=== PATIENT | male | born 1945 | race Caucasian/White ===

== ENCOUNTER 2023-08-09 09:37 | Oncology outpatient (recurring) (ONCR) | payer OTHER, SELFPAY | END 2023-08-22 23:59 | disposition home or self-care (01) | PROVIDERS: Visit Provider Internal Medicine Medical Oncology | DX: C34.12 Malignant neoplasm of upper lobe, left bronchus or lung (principal); Z79.899 Other long term (current) drug therapy; Z53.9 Procedure and treatment not carried out, unspecified reason | CPT/HCPCS: 99205 ==

== ENCOUNTER 2023-09-04 13:56 | Outpatient (CLI) | payer OTHER, SELFPAY | END 2023-09-04 13:57 | disposition home or self-care (01) | LOC: RT 13:56 | PROVIDERS: PCP Internal Medicine; Visit Provider Internal Medicine Medical Oncology | DX: C34.12 Malignant neoplasm of upper lobe, left bronchus or lung (principal); Z72.0 Tobacco use | CPT/HCPCS: 94010; 94726; 94729 ==

== ENCOUNTER 2023-09-12 12:00 | Oncology outpatient (recurring) (ONCR) | payer OTHER, SELFPAY ==
[2023-09-12 12:19] LABS: Basophils % 0.2 %; Eosinophils # 0.3 10^3/uL (0.0-0.8); Eosinophils % 3.1 %; Hematocrit 34.2 % (37-53); Lymphocytes # 1.1 10^3/uL (0.8-4.8); Lymphocytes % 9.9 %; Mean Corpuscular HGB Conc 31.9 g/dL (30-55); Mean Corpuscular Hemoglobin 26.1 pg (27-33); Mean Platelet Volume 8.7 fL (7.4-10.4); Monocytes # 0.8 10^3/uL (0.2-0.9); Nucleated Red Blood Cells % 0 %; Platelet Count 412 10^3/cmm (157-399); Red Blood Count 4.17 10^6/uL (3.85-5.65); Red Cell Distribution Width 15.1 % (12.1-15.1); White Blood Count 11.01 10^3/uL (3.29-11.43)
[2023-09-12 12:48] LABS: Alanine Aminotransferase 26 U/L (0-41); Albumin Level 2.9 g/dL (3.5-5.2); Alkaline Phosphatase 96 U/L (40-130); Anion Gap 14.7 (5-19); Aspartate Amino Transferase 15 U/L (0-40); Blood Urea Nitrogen 23 mg/dL (8-23); Calcium 9.6 mg/dL (8.5-10.5); Carbon Dioxide 25 mmol/L (22-29); Chloride 98 mmol/L (98-107); Creatinine Clr Calc Pharmacy 40.8498; Globulin 4.2 g/dL (1.3-4.6); Glucose 140 mg/dL (65-115); Osmolality Calculated 282 mOsm/kg (285-295); Potassium 4.7 mmol/L (3.5-5.1); Sodium 133 mmol/L (136-145); Thyroid Stimulating Hormone 2.18 uIU/mL (0.27-4.20); Total Bilirubin 0.2 mg/dL (0.15-1.2); Total Protein 7.1 g/dL (6.6-8.7)
[2023-09-12] MEDS: pembrolizumab 200 MG in sodium chloride 0.9% 250 ML 516 MG IV (14:36)
[2023-09-12 15:20] VITALS: BP 101/58; PULSE 62; TEMP 36.3; O2SAT 96
== END 2023-09-12 23:59 | disposition home or self-care (01) ==
PROVIDERS: PCP Internal Medicine; Visit Provider Internal Medicine Medical Oncology
DX: Z53.9 Procedure and treatment not carried out, unspecified reason (principal); Z51.12 Encounter for antineoplastic immunotherapy; C34.12 Malignant neoplasm of upper lobe, left bronchus or lung; F17.210 Nicotine dependence, cigarettes, uncomplicated; Z79.899 Other long term (current) drug therapy
CPT/HCPCS: 36415; 80053; 82533; 84443; 85025; 96413; 99215; A4222; J7050; J9271

== ENCOUNTER 2023-09-19 12:21 | Oncology outpatient (recurring) (ONCR) | payer OTHER, SELFPAY ==
[2023-09-19 12:47] LABS: Basophils % 0.2 %; Eosinophils # 0.4 10^3/uL (0.0-0.8); Eosinophils % 3.8 %; Hematocrit 35.3 % (37-53); Lymphocytes # 0.9 10^3/uL (0.8-4.8); Lymphocytes % 8.3 %; Mean Corpuscular HGB Conc 30.9 g/dL (30-55); Mean Corpuscular Hemoglobin 25.5 pg (27-33); Mean Corpuscular Volume 82.7 fl (82-101); Mean Platelet Volume 8.9 fL (7.4-10.4); Monocytes # 0.6 10^3/uL (0.2-0.9); Monocytes % 5.3 %; Neutrophils # 8.74 10^3/uL (1.8-7.7); Neutrophils % 81.6 %; Nucleated Red Blood Cells % 0 %; Platelet Count 453 10^3/cmm (157-399); Red Blood Count 4.27 10^6/uL (3.85-5.65); Red Cell Distribution Width 15.4 % (12.1-15.1); White Blood Count 10.72 10^3/uL (3.29-11.43)
[2023-09-19 13:00] LABS: Alanine Aminotransferase 28 U/L (0-41); Albumin Level 2.9 g/dL (3.5-5.2); Alkaline Phosphatase 90 U/L (40-130); Anion Gap 14.4 (5-19); Aspartate Amino Transferase 18 U/L (0-40); Blood Urea Nitrogen 19 mg/dL (8-23); Calcium 9.1 mg/dL (8.5-10.5); Carbon Dioxide 25 mmol/L (22-29); Chloride 101 mmol/L (98-107); Glucose 198 mg/dL (65-115); Osmolality Calculated 290 mOsm/kg (285-295); Potassium 4.4 mmol/L (3.5-5.1); Sodium 136 mmol/L (136-145); Total Bilirubin 0.2 mg/dL (0.15-1.2); Total Protein 6.9 g/dL (6.6-8.7)
== END 2023-09-20 23:59 | disposition home or self-care (01) ==
PROVIDERS: Nurse Practitioner Family; PCP Internal Medicine; Visit Provider Internal Medicine Medical Oncology
DX: C34.12 Malignant neoplasm of upper lobe, left bronchus or lung; Z79.899 Other long term (current) drug therapy; F17.210 Nicotine dependence, cigarettes, uncomplicated; Z53.9 Procedure and treatment not carried out, unspecified reason
CPT/HCPCS: 36415; 80053; 85025; 99214

== ENCOUNTER 2023-10-03 11:18 | Oncology outpatient (recurring) (ONCR) | payer OTHER, SELFPAY ==
[2023-10-03 12:04] LABS: Basophils % 0.3 %; Eosinophils # 0.6 10^3/uL (0.0-0.8); Eosinophils % 5.7 %; Hematocrit 34.3 % (37-53); Lymphocytes # 1.3 10^3/uL (0.8-4.8); Lymphocytes % 13.1 %; Mean Corpuscular HGB Conc 31.2 g/dL (30-55); Mean Corpuscular Volume 83.3 fl (82-101); Mean Platelet Volume 8.6 fL (7.4-10.4); Monocytes # 0.6 10^3/uL (0.2-0.9); Monocytes % 6.1 %; Neutrophils # 7.44 10^3/uL (1.8-7.7); Neutrophils % 73.6 %; Nucleated Red Blood Cells % 0 %; Platelet Count 408 10^3/cmm (157-399); Red Blood Count 4.12 10^6/uL (3.85-5.65); Red Cell Distribution Width 15.7 % (12.1-15.1); White Blood Count 10.12 10^3/uL (3.29-11.43)
[2023-10-03 12:38] LABS: Alanine Aminotransferase 20 U/L (0-41); Alkaline Phosphatase 112 U/L (40-130); Anion Gap 15.2 (5-19); Aspartate Amino Transferase 16 U/L (0-40); Blood Urea Nitrogen 27 mg/dL (8-23); Carbon Dioxide 26 mmol/L (22-29); Chloride 100 mmol/L (98-107); Glucose 151 mg/dL (65-115); Osmolality Calculated 290 mOsm/kg (285-295); Potassium 5.2 mmol/L (3.5-5.1); Sodium 136 mmol/L (136-145); Thyroid Stimulating Hormone 2.47 uIU/mL (0.27-4.20); Total Bilirubin 0.2 mg/dL (0.15-1.2)
[2023-10-03] MEDS: pembrolizumab 200 MG in sodium chloride 0.9% 250 ML 516 MG IV (13:58)
[2023-10-03 14:51] VITALS: BP 95/57; PULSE 62; RESP 16; O2SAT 95
== END 2023-10-03 23:59 | disposition home or self-care (01) ==
PROVIDERS: Nurse Practitioner Family; PCP Internal Medicine; Visit Provider Internal Medicine Medical Oncology
DX: C34.12 Malignant neoplasm of upper lobe, left bronchus or lung; Z79.899 Other long term (current) drug therapy; Z51.12 Encounter for antineoplastic immunotherapy; F17.210 Nicotine dependence, cigarettes, uncomplicated
CPT/HCPCS: 80053; 84443; 85025; 96413; 99214; A4222; J7050; J9271

== ENCOUNTER 2023-10-24 13:06 | Oncology outpatient (recurring) (ONCR) | payer OTHER, SELFPAY ==
[2023-10-24 13:29] LABS: Basophils % 0.3 %; Eosinophils # 0.5 10^3/uL (0.0-0.8); Eosinophils % 5.9 %; Hematocrit 39.1 % (37-53); Lymphocytes # 1.9 10^3/uL (0.8-4.8); Lymphocytes % 21.6 %; Mean Corpuscular HGB Conc 30.4 g/dL (30-55); Mean Corpuscular Hemoglobin 25.8 pg (27-33); Mean Corpuscular Volume 84.6 fl (82-101); Mean Platelet Volume 8.7 fL (7.4-10.4); Monocytes # 0.6 10^3/uL (0.2-0.9); Monocytes % 6.5 %; Neutrophils # 5.71 10^3/uL (1.8-7.7); Neutrophils % 65.1 %; Nucleated Red Blood Cells % 0 %; Platelet Count 344 10^3/cmm (157-399); Red Blood Count 4.62 10^6/uL (3.85-5.65); Red Cell Distribution Width 18.1 % (12.1-15.1); White Blood Count 8.77 10^3/uL (3.29-11.43)
[2023-10-24 14:35] LABS: Alanine Aminotransferase 29 U/L (0-41); Albumin Level 3.5 g/dL (3.5-5.2); Alkaline Phosphatase 106 U/L (40-130); Anion Gap 12.6 (5-19); Aspartate Amino Transferase 20 U/L (0-40); Blood Urea Nitrogen 18 mg/dL (8-23); Calcium 9.1 mg/dL (8.5-10.5); Carbon Dioxide 28 mmol/L (22-29); Chloride 104 mmol/L (98-107); Globulin 3.9 g/dL (1.3-4.6); Glucose 88 mg/dL (65-115); Osmolality Calculated 291 mOsm/kg (285-295); Potassium 4.6 mmol/L (3.5-5.1); Sodium 140 mmol/L (136-145); Thyroid Stimulating Hormone 2.16 uIU/mL (0.27-4.20); Total Bilirubin 0.2 mg/dL (0.15-1.2); Total Protein 7.4 g/dL (6.6-8.7)
[2023-10-24] MEDS: pembrolizumab 200 MG in sodium chloride 0.9% 250 ML 516 MG IV (15:51)
[2023-10-24 16:30] VITALS: BP 128/72; PULSE 71; RESP 18; TEMP 36.6; O2SAT 97
[2023-10-25 08:57] LABS: Iron 33 ug/dL (59-158); Percent Saturation 16.9 % (20-50); Total Iron Binding Capacity 195 mcg/dl; Unsaturated Iron Binding 162 ug/dL (112-347)
== END 2023-10-24 23:59 | disposition home or self-care (01) ==
PROVIDERS: Nurse Practitioner Family; PCP Internal Medicine; Visit Provider Internal Medicine Medical Oncology
DX: C34.12 Malignant neoplasm of upper lobe, left bronchus or lung; Z79.899 Other long term (current) drug therapy
CPT/HCPCS: 80053; 83540; 83550; 84443; 85025; 96413; 99214; A4222; J7050; J9271

== ENCOUNTER 2023-11-14 15:00 | Oncology outpatient (recurring) (ONCR) | payer OTHER, SELFPAY ==
[2023-11-02 09:18] VITALS: BP 129/72; PULSE 67; RESP 18; O2SAT 96
[2023-11-02] MEDS: ferric carboxy (IVPB) 750 MG in sodium chloride 0.9% (100 ml) 100 ML 345 MG IV (09:44)
[2023-11-02] MEDS: sodium chloride 0.9% 250 ML 75 ML IV (09:44)
[2023-11-02 10:16] VITALS: BP 126/64; PULSE 54; O2SAT 97
[2023-11-09 09:02] VITALS: BP 112/72; PULSE 68; RESP 16; TEMP 36.4; O2SAT 96
[2023-11-09] MEDS: ferric carboxy (IVPB) 750 MG in sodium chloride 0.9% (100 ml) 100 ML 345 MG IV (09:03)
[2023-11-09 09:31] VITALS: BP 136/74; PULSE 62; O2SAT 95
[2023-11-14 15:44] VITALS: BP 133/67; PULSE 70; RESP 16; TEMP 36.3; O2SAT 97
[2023-11-14] MEDS: pembrolizumab 200 MG in sodium chloride 0.9% 250 ML 516 MG IV (16:09)
[2023-11-14 16:55] VITALS: BP 148/73; PULSE 61; RESP 16; TEMP 35.9; O2SAT 99
== END 2023-11-14 23:59 | disposition home or self-care (01) ==
PROVIDERS: PCP Internal Medicine; Visit Provider Internal Medicine Medical Oncology
DX: C34.12 Malignant neoplasm of upper lobe, left bronchus or lung; Z53.9 Procedure and treatment not carried out, unspecified reason; Z51.12 Encounter for antineoplastic immunotherapy
CPT/HCPCS: 96365; 96413; A4222; J1439; J7050; J9271

== ENCOUNTER 2023-12-05 12:01 | Oncology outpatient (recurring) (ONCR) | payer OTHER, SELFPAY ==
[2023-12-05 12:32] LABS: Basophils % 0.3 %; Eosinophils # 0.2 10^3/uL (0.0-0.8); Eosinophils % 2.7 %; Hematocrit 44.6 % (37-53); Lymphocytes # 1.4 10^3/uL (0.8-4.8); Mean Corpuscular HGB Conc 32.3 g/dL (30-55); Mean Corpuscular Hemoglobin 28.9 pg (27-33); Mean Corpuscular Volume 89.6 fl (82-101); Monocytes # 0.4 10^3/uL (0.2-0.9); Monocytes % 6.1 %; Neutrophils % 69.6 %; Nucleated Red Blood Cells % 0 %; Platelet Count 236 10^3/cmm (157-399); Red Blood Count 4.98 10^6/uL (3.85-5.65); Red Cell Distribution Width 20.1 % (12.1-15.1); White Blood Count 6.75 10^3/uL (3.29-11.43)
[2023-12-05 13:00] LABS: Alanine Aminotransferase 31 U/L (0-41); Alkaline Phosphatase 117 U/L (40-130); Anion Gap 11.4 (5-19); Aspartate Amino Transferase 20 U/L (0-40); Blood Urea Nitrogen 18 mg/dL (8-23); Calcium 8.5 mg/dL (8.5-10.5); Carbon Dioxide 28 mmol/L (22-29); Chloride 104 mmol/L (98-107); Ferritin 820 ng/mL (30-400); Globulin 3.8 g/dL (1.3-4.6); Glucose 108 mg/dL (65-115); Iron 71 ug/dL (59-158); Osmolality Calculated 290 mOsm/kg (285-295); Percent Saturation 36.2 % (20-50); Potassium 4.4 mmol/L (3.5-5.1); Sodium 139 mmol/L (136-145); Thyroid Stimulating Hormone 1.89 uIU/mL (0.27-4.20); Total Bilirubin 0.2 mg/dL (0.15-1.2); Total Iron Binding Capacity 196 mcg/dl; Total Protein 7.8 g/dL (6.6-8.7); Unsaturated Iron Binding 125 ug/dL (112-347)
[2023-12-05] MEDS: pembrolizumab 200 MG in sodium chloride 0.9% 250 ML 516 MG IV (14:30)
[2023-12-05 15:15] VITALS: BP 153/67; PULSE 60; RESP 17; TEMP 36.2; O2SAT 95
== END 2023-12-05 23:59 | disposition home or self-care (01) ==
PROVIDERS: PCP Internal Medicine; Visit Provider Internal Medicine Medical Oncology
DX: C34.12 Malignant neoplasm of upper lobe, left bronchus or lung; Z79.899 Other long term (current) drug therapy; Z51.12 Encounter for antineoplastic immunotherapy; E61.1 Iron deficiency
CPT/HCPCS: 80053; 82728; 83540; 83550; 84443; 85025; 96413; 99214; A4222; J7050; J9271

== ENCOUNTER 2023-12-06 14:40 | Oncology outpatient (recurring) (ONCR) | payer OTHER, SELFPAY ==
--- NOTE | 2023-12-06 | CT_ITS ---
WS: [id number] CT CHEST TECHNIQUE: Noncontrast CT of the chest with coronal and sagittal reformatted images. CLINICAL INFORMATION: surveillance COMPARISON: Outside imaging only. PET/CT 07/27/[address] chest 07/10/2023. CT 06/05/2023 DLP: 289.[address] scans at [facility] use at least one of these dose optimization techniques: automated e xposure control; mA and/or kV adjustment per patient size (includes targeted exams where dose is matc hed to clinical indication); or iterative reconstruction. FINDINGS: Chronic advanced paraseptal emphysematous changes. Nodular cavitary mass in the LEFT upper lobe measu ring approximately 6.3 x 5.3 x 6.2 cm. This appears stable since the prior PET/CT and not significant ly changed. Internal debris and air-fluid level. This abuts the pleura and anterior mediastinum with slight invasion of the anterior mediastinal fat similar to previous. This does not appear significant ly changed compared to 06/05/2023. Pleural parenchymal scarring in the LEFT upper lobe. Tiny LEFT ple ural effusion. RIGHT lung is well aerated. Small hepatic cysts. Partially visualized bilateral renal cysts. Adrenal glands are normal. Splenic g ranulomas. Small esophageal hiatal hernia. CT/CT chest wo con [id number] IMPRESSION: 1. Stable thick walled nodular cavitary mass in the LEFT upper lobe with invol vement of the anteromediastinal fat and pleura. This is not significantly vick ed compared to the prior examinations considering differences in technique and presumably represents cavitary neoplasm. If no prior diagnosis of cancer consid er aspergilloma and cavitary bacterial pneumonia with abscess 2. Internal air-fluid levels with internal debris. 3. Advanced chronic paraseptal emphysematous changes.
== END 2023-12-21 23:59 | disposition home or self-care (01) ==
PROVIDERS: PCP Internal Medicine; Visit Provider Nurse Practitioner Family
DX: C34.12 Malignant neoplasm of upper lobe, left bronchus or lung
CPT/HCPCS: 71250

== ENCOUNTER 2023-12-26 10:38 | Oncology outpatient (recurring) (ONCR) | payer OTHER, SELFPAY ==
[2023-12-26 11:29] LABS: Basophils % 0.3 %; Eosinophils # 0.3 10^3/uL (0.0-0.8); Eosinophils % 3.7 %; Hematocrit 46.2 % (37-53); Lymphocytes # 1.6 10^3/uL (0.8-4.8); Lymphocytes % 20.7 %; Mean Corpuscular HGB Conc 32.9 g/dL (30-55); Mean Corpuscular Hemoglobin 29.6 pg (27-33); Mean Corpuscular Volume 89.9 fl (82-101); Mean Platelet Volume 9.8 fL (7.4-10.4); Monocytes # 0.6 10^3/uL (0.2-0.9); Monocytes % 7.1 %; Neutrophils # 5.24 10^3/uL (1.8-7.7); Neutrophils % 67.7 %; Nucleated Red Blood Cells % 0 %; Platelet Count 248 10^3/cmm (157-399); Red Blood Count 5.14 10^6/uL (3.85-5.65); Red Cell Distribution Width 17.9 % (12.1-15.1); White Blood Count 7.74 10^3/uL (3.29-11.43)
[2023-12-26 11:56] LABS: Alanine Aminotransferase 26 U/L (0-41); Alkaline Phosphatase 136 U/L (40-130); Anion Gap 14.5 (5-19); Aspartate Amino Transferase 18 U/L (0-40); Blood Urea Nitrogen 22 mg/dL (8-23); Carbon Dioxide 25 mmol/L (22-29); Chloride 105 mmol/L (98-107); Globulin 3.8 g/dL (1.3-4.6); Glucose 126 mg/dL (65-115); Osmolality Calculated 295 mOsm/kg (285-295); Potassium 4.5 mmol/L (3.5-5.1); Sodium 140 mmol/L (136-145); Total Bilirubin 0.2 mg/dL (0.15-1.2); Total Protein 7.8 g/dL (6.6-8.7)
[2023-12-26] MEDS: pembrolizumab 200 MG in sodium chloride 0.9% 250 ML 516 MG IV (13:18)
[2023-12-26 13:52] VITALS: BP 152/73; PULSE 63; RESP 18; TEMP 35.7; O2SAT 93
== END 2023-12-26 23:59 | disposition home or self-care (01) ==
PROVIDERS: PCP Internal Medicine; Visit Provider Nurse Practitioner Family
DX: Z51.12 Encounter for antineoplastic immunotherapy (principal); C34.12 Malignant neoplasm of upper lobe, left bronchus or lung; F17.210 Nicotine dependence, cigarettes, uncomplicated; Z79.899 Other long term (current) drug therapy
CPT/HCPCS: 80053; 85025; 96413; 99214; A4222; J7050; J9271

== ENCOUNTER 2024-01-16 09:54 | Oncology outpatient (recurring) (ONCR) | payer OTHER, SELFPAY ==
[2024-01-16 10:40] LABS: Basophils % 0.2 %; Eosinophils # 0.3 10^3/uL (0.0-0.8); Hematocrit 46.2 % (37-53); Lymphocytes # 1.7 10^3/uL (0.8-4.8); Lymphocytes % 20.2 %; Mean Corpuscular HGB Conc 32.7 g/dL (30-55); Mean Corpuscular Hemoglobin 29.8 pg (27-33); Mean Corpuscular Volume 91.1 fl (82-101); Mean Platelet Volume 9.3 fL (7.4-10.4); Monocytes # 0.6 10^3/uL (0.2-0.9); Monocytes % 7.4 %; Neutrophils % 68.6 %; Nucleated Red Blood Cells % 0 %; Platelet Count 244 10^3/cmm (157-399); Red Blood Count 5.07 10^6/uL (3.85-5.65); Red Cell Distribution Width 16.2 % (12.1-15.1); White Blood Count 8.46 10^3/uL (3.29-11.43)
[2024-01-16 11:06] LABS: Alanine Aminotransferase 27 U/L (0-41); Alkaline Phosphatase 146 U/L (40-130); Anion Gap 12.5 (5-19); Aspartate Amino Transferase 18 U/L (0-40); Blood Urea Nitrogen 19 mg/dL (8-23); Calcium 9.1 mg/dL (8.5-10.5); Carbon Dioxide 27 mmol/L (22-29); Chloride 103 mmol/L (98-107); Globulin 3.6 g/dL (1.3-4.6); Glucose 102 mg/dL (65-115); Osmolality Calculated 288 mOsm/kg (285-295); Potassium 4.5 mmol/L (3.5-5.1); Sodium 138 mmol/L (136-145); Thyroid Stimulating Hormone 1.83 uIU/mL (0.27-4.20); Total Bilirubin 0.2 mg/dL (0.15-1.2); Total Protein 7.6 g/dL (6.6-8.7)
[2024-01-16 11:40] LABS: Ferritin 609 ng/mL (30-400); Iron 52 ug/dL (59-158); Percent Saturation 28.7 % (20-50); Total Iron Binding Capacity 181 mcg/dl; Unsaturated Iron Binding 129 ug/dL (112-347)
[2024-01-16] MEDS: pembrolizumab 200 MG in sodium chloride 0.9% 250 ML 516 MG IV (12:24)
[2024-01-16 13:06] VITALS: BP 124/69; PULSE 65; RESP 17; TEMP 36.4; O2SAT 95
== END 2024-01-16 23:59 | disposition home or self-care (01) ==
PROVIDERS: PCP Internal Medicine; Visit Provider Nurse Practitioner Family
DX: C34.12 Malignant neoplasm of upper lobe, left bronchus or lung (principal); Z53.9 Procedure and treatment not carried out, unspecified reason; D50.8 Other iron deficiency anemias; Z51.12 Encounter for antineoplastic immunotherapy
CPT/HCPCS: 80053; 82728; 83540; 83550; 84443; 85025; 96413; 99214; A4222; J7050; J9271

== ENCOUNTER 2024-02-06 11:09 | Oncology outpatient (recurring) (ONCR) | payer OTHER, SELFPAY ==
[2024-02-06 11:53] VITALS: BP 115/70; PULSE 68; RESP 16; TEMP 36.8; O2SAT 98
--- NOTE | 2024-02-06 12:00 | XRR_ITS ---
PROCEDURE INFORMATION: Exam: XR Chest Exam date and time: 02/06/2024 12:24 PM Age: 78 years old Clinical indication: Cough and fever; Additional info: Lung CA, fever, cough TECHNIQUE: Imaging protocol: Radiologic exam of the chest. Views: 2 views. COMPARISON: CT chest wo con [id number] 12/06/2023 2:50 PM FINDINGS: Lungs: Known cavitary left superior perihilar mass. Bilateral calcified granulomata. Stable asymmetric left apical thickening. Lower lung predominant reticulation appears stable. Pleural spaces: No pleural effusion or pneumothorax. Heart/Mediastinum: Unremarkable. No cardiomegaly. Bones/joints: Degenerative change along the spine and acromioclavicular joints. XR/XR chest 2V* [id number] IMPRESSION: 1. No acute findings. 2. Chronic changes with known cavitary left superior perihilar mass.
[2024-02-06 12:18] LABS: Basophils % 0.2 %; Eosinophils % 0.6 %; Hematocrit 47.8 % (37-53); Lymphocytes % 19.3 %; Mean Corpuscular HGB Conc 32.8 g/dL (30-55); Mean Corpuscular Hemoglobin 29.7 pg (27-33); Mean Corpuscular Volume 90.5 fl (82-101); Mean Platelet Volume 9.5 fL (7.4-10.4); Monocytes # 0.3 10^3/uL (0.2-0.9); Monocytes % 6.1 %; Neutrophils # 3.95 10^3/uL (1.8-7.7); Neutrophils % 73.2 %; Nucleated Red Blood Cells % 0 %; Platelet Count 143 10^3/cmm (157-399); Red Blood Count 5.28 10^6/uL (3.85-5.65); Red Cell Distribution Width 14.9 % (12.1-15.1); White Blood Count 5.39 10^3/uL (3.29-11.43)
[2024-02-06 12:44] LABS: Alanine Aminotransferase 33 U/L (0-41); Alkaline Phosphatase 125 U/L (40-130); Anion Gap 11.9 (5-19); Aspartate Amino Transferase 20 U/L (0-40); Blood Urea Nitrogen 26 mg/dL (8-23); Calcium 8.7 mg/dL (8.5-10.5); Carbon Dioxide 27 mmol/L (22-29); Chloride 104 mmol/L (98-107); Globulin 3.7 g/dL (1.3-4.6); Glucose 132 mg/dL (65-115); Osmolality Calculated 293 mOsm/kg (285-295); Potassium 4.9 mmol/L (3.5-5.1); Sodium 138 mmol/L (136-145); Total Bilirubin 0.2 mg/dL (0.15-1.2); Total Protein 7.7 g/dL (6.6-8.7)
== END 2024-02-20 23:59 | disposition home or self-care (01) ==
PROVIDERS: Internal Medicine Medical Oncology; PCP Internal Medicine; Visit Provider Nurse Practitioner Family
DX: Z53.9 Procedure and treatment not carried out, unspecified reason (principal); C34.12 Malignant neoplasm of upper lobe, left bronchus or lung; D64.9 Anemia, unspecified
CPT/HCPCS: 36415; 71046; 80053; 85025

== ENCOUNTER 2024-02-21 08:46 | Oncology outpatient (recurring) (ONCR) | payer OTHER, SELFPAY ==
[2024-02-21 09:25] LABS: Basophils % 0.5 %; Eosinophils # 0.2 10^3/uL (0.0-0.8); Eosinophils % 2.8 %; Hematocrit 46.5 % (37-53); Lymphocytes # 1.5 10^3/uL (0.8-4.8); Lymphocytes % 17.9 %; Mean Corpuscular HGB Conc 32.9 g/dL (30-55); Mean Corpuscular Hemoglobin 30.2 pg (27-33); Mean Corpuscular Volume 91.9 fl (82-101); Mean Platelet Volume 9.6 fL (7.4-10.4); Monocytes # 0.6 10^3/uL (0.2-0.9); Neutrophils # 5.94 10^3/uL (1.8-7.7); Neutrophils % 71.3 %; Nucleated Red Blood Cells % 0 %; Platelet Count 258 10^3/cmm (157-399); Red Blood Count 5.06 10^6/uL (3.85-5.65); Red Cell Distribution Width 13.6 % (12.1-15.1); White Blood Count 8.32 10^3/uL (3.29-11.43)
--- NOTE | 2024-02-21 09:30 | CT_ITS ---
WS: [id number] CT chest wo con [id number] HISTORY: Follow-up lung cancer. TECHNIQUE: Axial imaging performed through the thorax. Coronal and sagittal reformats are submitted. All CT scans at [facility] use at least one of these dose optimization techniques: automated exposure control; mA and/or kV adjustment per patient size (includes targeted exams where dose is mat ched to clinical indication); or iterative reconstruction. CONTRAST: None DLP: 307.20 mGy.cm COMPARISON: 12/06/2023, PET/CT 07/27/2023 Lungs and central airway: Advanced centrilobular emphysema. There is a thick walled cavitary lesion i n the LEFT upper lobe which has been previously described. Cavitary mass measures 6.6 x 4.5 x 6.1 cm. There is asymmetric wall thickening and nodularity. Increasing soft tissue mass extending medially f rom the cavitation measuring 3.8 x 3.7 cm. Subpleural nodules and pleural tagging reidentified. Bronc hial wall thickening and honeycombing and bronchiectasis noted. Pleura: Normal. No pleural effusion. Heart and pericardium: Normal size heart with no pericardial effusion. Mediastinum and sehlia: There is fullness of the LEFT hilum. Hilum is continuous with the cavitary lesi on in the LEFT upper lobe. Without IV contrast cannot exclude new lymph nodes. The LEFT hilar fullnes s was positive secondary to the cavitary lesion on the prior recent PET/CT. Vessels: Mild atherosclerosis aorta. Chest wall and lower neck: No soft tissue masses. Upper abdomen: There are a few scattered low-attenuation nodules within the liver which have been pre sent on prior CTs and most likely cysts. Cystic masses upper pole of each kidney. No adrenal mass. Osseous structures: No destructive process. CT/CT chest wo con [id number] IMPRESSION: 1. Cavitary lesion with thick asymmetric wall centered in the LEFT upper lobe measures 6.6 x 4.5 x 6.1 cm. The mass appears slightly larger in size and there is a new solid component extending medial towards the mediastinum nearly abutt ing the pulmonary artery. Suspicious for progression of neoplastic cavitation. 2. Fullness of the LEFT hilum cannot be further evaluated without IV contrast. This area was positive on the recent PET/CT due to extension of the cavitary m ass to the mediastinum. Lymph nodes are not excluded. 3. Interstitial lung disease. No new mass or nodule. 4. No metastatic disease in the liver identified. There are a few small cysts. 5. Bilateral renal cysts.
[2024-02-21 09:45] LABS: Alanine Aminotransferase 23 U/L (0-41); Albumin Level 3.9 g/dL (3.5-5.2); Alkaline Phosphatase 120 U/L (40-130); Anion Gap 14.7 (5-19); Aspartate Amino Transferase 16 U/L (0-40); Blood Urea Nitrogen 21 mg/dL (8-23); Calcium 8.9 mg/dL (8.5-10.5); Carbon Dioxide 27 mmol/L (22-29); Chloride 104 mmol/L (98-107); Globulin 3.9 g/dL (1.3-4.6); Glucose 151 mg/dL (65-115); Osmolality Calculated 298 mOsm/kg (285-295); Potassium 4.7 mmol/L (3.5-5.1); Sodium 141 mmol/L (136-145); Thyroid Stimulating Hormone 2.89 uIU/mL (0.27-4.20); Total Bilirubin 0.2 mg/dL (0.15-1.2); Total Protein 7.8 g/dL (6.6-8.7)
[2024-02-21] MEDS: pembrolizumab 200 MG in sodium chloride 0.9% 250 ML 516 MG IV (11:07)
[2024-02-21 11:57] VITALS: BP 135/75; PULSE 64; RESP 16; O2SAT 96
== END 2024-02-21 23:59 | disposition home or self-care (01) ==
PROVIDERS: Internal Medicine Medical Oncology; PCP Internal Medicine; Visit Provider Nurse Practitioner Family
DX: C34.12 Malignant neoplasm of upper lobe, left bronchus or lung (principal); D50.8 Other iron deficiency anemias; Z51.12 Encounter for antineoplastic immunotherapy; Z79.899 Other long term (current) drug therapy
CPT/HCPCS: 71250; 80053; 84443; 85025; 96413; 99214; J7050; J9271

== ENCOUNTER 2024-03-13 13:20 | Oncology outpatient (recurring) (ONCR) | payer OTHER, SELFPAY ==
[2024-03-13 13:47] VITALS: BP 109/69; PULSE 70; TEMP 36.2; O2SAT 94
[2024-03-13] MEDS: pembrolizumab 200 MG in sodium chloride 0.9% 250 ML 516 MG IV (14:28)
[2024-03-13 15:09] VITALS: BP 117/70; PULSE 75; O2SAT 93
== END 2024-03-13 23:59 | disposition home or self-care (01) ==
LOC: ONCMED 13:20
PROVIDERS: PCP Internal Medicine; Visit Provider Nurse Practitioner Family
DX: C34.12 Malignant neoplasm of upper lobe, left bronchus or lung (principal); Z51.12 Encounter for antineoplastic immunotherapy; Z79.899 Other long term (current) drug therapy
CPT/HCPCS: 96413; A4222; J7050; J9271

== ENCOUNTER 2024-04-21 13:08 | Oncology outpatient (recurring) (ONCR) | payer OTHER, SELFPAY ==
--- NOTE | 2024-03-25 09:32 | PETR_ITS ---
PROCEDURE INFORMATION: Exam: PET/CT Skull Base to Mid-thigh Exam date and time: 03/25/2024 10:48 AM Age: 78 years old Clinical indication: Condition or disease; Primary cancer: Lung cancer darinel; Follow-up oncological assessment; Additional info: Primary squamous cell carinoma of bronchus LABS AND CLINICAL REPORTS: Glucose: 106 mg/dl Treatment strategy for malignancy (PET staging): Restaging (PS) TECHNIQUE: Imaging protocol: Following at least four-hour fasting and following the injection of radiopharmaceutical, low dose CT images were obtained. Then, PET images were obtained. Attenuation corrected images were constructed using the CT scan. Fused images of PET and CT were reviewed. The standardized uptake values (SUV) reported below are maximum values within a region of interest, expressed in gm/ml. Exam includes orbital meatal line to mid-thigh. Radiopharmaceutical: 10.85 mCi F-18 FDG (Fluorodeoxyglucose), IV. Time of imaging post radiopharmaceutical administration: 1 hour Injection site: Left antecubital vein COMPARISON: PT PET Scan 07/27/2023 9:45 AM FINDINGS: Brain: Visualized brain has normal physiologic uptake. Pharynx: No abnormal uptake. Larynx: Diffuse bilateral symmetric activity is benign. Lungs, pleura and trachea: Primary malignant tumor in the left upper lobe noted as centrally necrotic mass inseparable from the mediastinal pleura and anterior costal pleura and possibly the pericardium decreased in size from 8.2 x 6.1 x 9.4 cm to 5.3 x 4.6 x 7.4 cm and increased in uptake from 18.6 SUV to 33.1 SUV. There is mild bilateral paraseptal emphysema. Dependent reticular opacities with areas of honeycombing in bilateral lower lobes suggestive of benign fibrotic changes demonstrate stable low-grade uptake of 2.6 SUV. There are calcified granulomas scattered in the left lung. No pleural effusions. Heart: Normal physiologic uptake. There is no cardiomegaly. Coronary artery calcification is present. There is no pericardial effusion. Mediastinal space: See below in lymph nodes . Liver: No abnormal uptake. There are few small bilateral simple cysts measuring up to 1 cm. Gallbladder and biliary ducts: No abnormal uptake. No calcified gallstones. Pancreas: No abnormal uptake. Spleen: No abnormal uptake. The spleen is normal in size with multiple small calcified granulomas. Adrenal glands: No abnormal uptake. No nodules. Kidneys and ureters: Normal physiologic uptake. No hydronephrosis. Multiple bilateral simple cysts with the largest cyst in the upper pole of the right kidney measuring 6.5 cm. Stomach and bowel: Long segments of increased uptake in the right and left colon and in a few loops of distal ileum with no corresponding CT abnormality are likely benign. Vasculature: No abnormal uptake. No aortic aneurysm. Lymph nodes: There is new/progressive cluster of FDG avid lymph nodes in the left hilum measuring up to 3.2 x 2.9 cm with the highest uptake of 29.3 SUV compatible with metastatic lymphadenopathy. No FDG avid lymphadenopathy in the head, neck, abdomen, pelvis, and extremities. There is sequela of exposure to granulomatous disease with calcified granulomas in normal size left hilar lymph nodes. Skeleton: No abnormal uptake in the visualized axial and appendicular skeleton. Soft tissues: Mildly increased uptake of 2.2 SUV within 2 x 1 cm soft tissue density nodule in the subcutaneous fat to the right of the midline in the posterior lower neck likely represents benign finding. PET/PET skull to thigh SUBS [id number] IMPRESSION: There is progressive disease in comparison with 07/27/2023. Partially necrotic primary tumor in the left upper lobe shows metabolic progression (increased uptake from 18.6 SUV tooth 33.1 SUV) and new caudal extension currently inseparable from the pericardium with no pericardial effusion. There is new metastatic lymphadenopathy in the left hilum with the highest uptake of 29.3 SUV. No evidence of distant FDG avid metastatic disease outside of the chest.
--- NOTE | 2024-04-09 11:16 | N.ONRAD NP_ITS ---
Radiation Oncology New Patient Visit Patient: Tye Almonte MR#: [id number] : 1945> Age: 78> Sex: Male> Dictated by: Dr. Stephanie Corado Date of Service: 04/09/2024 Referring Physician(s) : Diagnosis: Radiotherapy to date: Summary > No prior radiation therapy. Chief Complaint / History of Present Illness: Mr. Coto is an 78-year-old gentleman who was found at the end of last year to have a squamous cell carcinoma of the left upper lobe. Initially felt to be a stage T4 N0 PD-L1 50% positive. When he initially met to discuss a treatment plan he refused chemotherapy and said he would only take immunotherapy. He was started on Keytruda which initially at stabilize the disease. However the most recent PET scan has shown progression of the disease as well as spread to lymph nodes. It also has revealed an increased SUV from 18 to 33. I reviewed all of the results of the most recent PET scan with him and his . We talked about the role of radiation and lung cancer. We discussed his current symptoms and he is having a vague left shoulder pain which may be from the pleural involvement. He otherwise feels well with a good appetite and energy level and denies any trouble with shortness of breath. He actually had very good PFTs last time they were done with an FEV1 of 2.9 L. He is here today to discuss the radiation option for treatment. Current Medications: aspirin 81 mg PO DAILY cholecalciferol (vitamin D3) 10 mcg PO DAILY lorazepam 0.5 - 1 mg (0.5 - 1 x 1 mg) PO Q6H PRN prochlorperazine maleate (Compazine) 10 mg PO Q4H PRN simvastatin 5 mg PO DAILY Allergies: Iodinated Contrast Media Allergy (Intermediate, Verified 02/21/24 10:08) Unknown Medical History: Chronic kidney disease Essential tremor Coronary artery disease Type 2 diabetes mellitus Hyperlipidemia Hypertension Surgical History: History of bronchoscopy (07/11/23) History of colonoscopy (2016) History of coronary artery stent placement (10/2016)x 2 Family History: Noncontributory Social History: Smoking and tobacco/nicotine status: light tobacco/nicotine user (corncob pipe) cigarettes Packs smoked per day: 0.5 Years cigarettes smoked: 55 and pipe Pipes smoked per week: 15 Years smoked pipe: 5 Pipe Details: uses once or twice daily Smoking and tobacco/nicotine status: light tobacco/nicotine user (corncob pipe) cigarettes Packs smoked per day: 0.5 Years cigarettes smoked: 55 and pipe Pipes smoked per week: Current Complaints / Review of Systems: . Vital Signs: Performed on 04/09/2024 10:26 AM BMI - 23.101 kg/m2 (high), Height - 70 in, Weight - 161 lbs, Temperature - 96.8 f, Pulse - 72 /min, Respiration - 18 /min, O2 Sat - 94 % (low), Pain - 0, Fatigue - 0 and BP - 115/ 70 mm(hg). Physical Exam: General: Patient is in no apparent distress today. He is accompanied by his HEENT: Normocephalic atraumatic. Pupils are equal, sclera clear, extraocular muscles intact Pulmonary: Respiratory rate is regular and nonlabored. Lungs are clear to auscultation Cardiovascular: Regular rate and rhythm Abdomen: Abdomen is flat with minimal adipose tissue Extremities: Without clubbing cyanosis or edema Neurological: Alert and orient x 3. Gait and speech within normal limits Psych: Affect appropriate for current situation Performance Status: ECOG 1 Pathology: Squamous cell carcinoma of the lung Imaging: See HPI Impression: Squamous of carcinoma of the left lung with progression on immunotherapy Plan: I reviewed with the patient the findings on his most recent PET scan. We talked about how the disease had now involved lymph nodes and how the SUV had nearly doubled. We reviewed the current symptoms which she is having a odd shoulder pain which could be some radiation around from the pleural involvement. He talked about why he did not have chemotherapy. He had refused this at his initial evaluation. He said he has had at least 20 friends who have had cancer and when they started the chemotherapy is when they usually . He otherwise is in good spirits and has a good appetite and energy level. We talked about using the radiation at this point since the immune therapy has become ineffective. We talked about the simulation process. We reviewed the daily treatment regiment. We discussed the risks and side effects both acute and long-term. At this point he is agreed to proceed with treatment. He will return for simulation and will begin his treatment shortly thereafter. Signed by: 04/09/2024 11:14:52 AM <<Signature on File>> Time spent with [email or web address] CPT Code: CPT Code:
--- NOTE | 2024-04-15 14:19 | ONCRAD TMN_ITS ---
Radiation Oncology Weekly Treatment Management Patient: Tye Almonte MR#: [id number] : 1945 Attending Physician: Dr. Adonis Live Date of Service: 04/15/2024 Referring Physician(s) : Diagnosis: C34.12 - Malignant neoplasm of upper lobe, left bronchus or lung, Diagnosed 04/09/2024 (Active) Radiotherapy to date: Course: L lung/node, Treatment Site: Lt Lung 60Gy, Ref. ID: [id number], Energy: 6X, Dose/Fx (cGy): 200, #Fx: , Dose Correction (cGy): 0, Total Dose Delivered (cGy): 200, Start Date: 04/15/2024, Elapsed Days: 0 Reason for visit: The patient is being seen today as part of their regularly scheduled weekly on treatment visits to assess for acute toxicities from radiotherapy. Review of Systems: Breathing and eating ok. He cannot tolerate heat and humidity and has not been out much. Smoking a pipe but no cigarettes. Vital Signs: Performed on 04/15/2024 1:45 PM BMI - 22.814 kg/m2, Height - 70 in, Weight - 159 lbs, Temperature - 96.8 f, Pulse - 59 /min (low), Respiration - 16 /min, O2 Sat - 98 %, Pain - 0, Fatigue - 0 and BP - 109/ 64 mm(hg)(/low). Physical Exam: Imaging: Radiation therapy imaging related to accurate target localization (i.e. KV, MV and CBCT) was reviewed. Appropriate changes, if any, were made to ensure treatment accuracy. Plan: Good tolerance of first treatment. Continue as planned. Signed by: Dr. Adonis Live 04/15/2024 2:18:06 PM
== END 2024-04-21 23:59 | disposition home or self-care (01) ==
PROVIDERS: PCP Internal Medicine; Visit Provider Radiology Radiation Oncology
DX: Z51.0 Encounter for antineoplastic radiation therapy (principal); C34.12 Malignant neoplasm of upper lobe, left bronchus or lung
CPT/HCPCS: 77300; 77301; 77334; 77338; 77386; 78815; 99024; 99205; A9552

== ENCOUNTER 2024-05-12 13:04 | Oncology outpatient (recurring) (ONCR) | payer OTHER, SELFPAY ==
--- NOTE | 2024-04-22 13:53 | ONCRAD TMN_ITS ---
Radiation Oncology Weekly Treatment Management Patient: Suzy Gaines MR#: [id number] : 1945> Attending Physician: Rex Cruz Date of Service: 04/22/2024 Referring Physician(s) : Diagnosis: C34.12 - Malignant neoplasm of upper lobe, left bronchus or lung, Diagnosed 04/09/2024 (Active) Radiotherapy to date: Course: L lung/node, Treatment Site: Lt Lung 60Gy, Ref. ID: [id number], Energy: 6X, Dose/Fx (cGy): 200, #Fx: 6 / 30, Dose Correction (cGy): 0, Total Dose Delivered (cGy): 1,200, Start Date: 04/15/2024, Elapsed Days: 7 Reason for visit: The patient is being seen today as part of their regularly scheduled weekly on treatment visits to assess for acute toxicities from radiotherapy. Chief Complaint / History of Present Illness: Mr. Coto is an 78-year-old gentleman who was found at the end of last year to have a squamous cell carcinoma of the left upper lobe. Initially felt to be a stage T4 N0 PD-L1 50% positive. When he initially met to discuss a treatment plan he refused chemotherapy and said he would only take immunotherapy. He was started on Keytruda which initially at stabilize the disease. However the most recent PET scan has shown progression of the disease as well as spread to lymph nodes. It also has revealed an increased SUV from 18 to 33. I reviewed all of the results of the most recent PET scan with him and his . We talked about the role of radiation and lung cancer. We discussed his current symptoms and he is having a vague left shoulder pain which may be from the pleural involvement. He otherwise feels well with a good appetite and energy level and denies any trouble with shortness of breath. He actually had very good PFTs last time they were done with an FEV1 of 2.9 L Review of Systems: As above. Vital Signs: Performed on 04/22/2024 1:23 PM BMI - 22.728 kg/m2, Height - 70 in, Weight - 158.4 lbs, Temperature - 96.4 f, Pulse - 62 /min, Respiration - 18 /min, O2 Sat - 99 %, Pain - 0, Fatigue - 0 and BP - 114/ 69 mm(hg). Physical Exam: Patient alert and oriented and answers questions appropriately. He denies any hemoptysis. In the early mornings he has a coughing spell when he first gets up for around 30 to 40 minutes and then is good for the day. He has a excellent appetite but is losing weight he states. He continues to smoke a pipe but no cigarettes. Actually yesterday he cut half his lawn after he finished treatment. Imaging: Radiation therapy imaging related to accurate target localization (i.e. KV, MV and CBCT) was reviewed. Appropriate changes, if any, were made to ensure treatment accuracy. Plan: Tolerating treatment well. Continue XRT Signed by: Rex Cruz 04/22/2024 1:51:42 PM
--- NOTE | 2024-04-29 14:08 | ONCRAD TMN_ITS ---
Radiation Oncology Weekly Treatment Management Patient: Suzy Gaines MR#: [id number] : 1945> Attending Physician: Dr. Stephanie Corado Date of Service: 04/29/2024 Fractions: 11 out of 30 Referring Physician(s) : Diagnosis: C34.12 - Malignant neoplasm of upper lobe, left bronchus or lung, Diagnosed 04/09/2024 (Active) Radiotherapy to date: Course: L lung/node, Treatment Site: Lt Lung 60Gy, Ref. ID: [id number], Energy: 6X, Dose/Fx (cGy): 200, #Fx: , Dose Correction (cGy): 0, Total Dose Delivered (cGy): 2,200, Start Date: 04/15/2024, Elapsed Days: 14 Reason for visit: The patient is being seen today as part of their regularly scheduled weekly on treatment visits to assess for acute toxicities from radiotherapy. Review of Systems: Patient remains in good spirits. He has a good appetite but only eats when he is hungry. He is not have any trouble with breathing. He is not having trouble swallowing. Vital Signs: Performed on 04/29/2024 1:06 PM BMI - 22.8 kg/m2, Height - 70 in, Weight - 158.9 lbs, Temperature - 96.7 f, Pulse - 62 /min, Respiration - 18 /min, O2 Sat - 96 %, Pain - 0, Fatigue - 0 and BP - 109/ 66 mm(hg). Physical Exam: No changes on exam Imaging: Radiation therapy imaging related to accurate target localization (i.e. KV, MV and CBCT) was reviewed. Appropriate changes, if any, were made to ensure treatment accuracy. Plan: Will continue with his treatment as planned Signed by: Dr. Stephanie Corado 04/29/2024 2:07:14 PM
--- NOTE | 2024-05-06 14:16 | ONCRAD TMN_ITS ---
Radiation Oncology Weekly Treatment Management Patient: Tye Almonte MR#: [id number] : 1945 Attending Physician: Dr. Stephanie Corado Date of Service: 05/06/2024 Fractions: 15 out of 30 Referring Physician(s) : Diagnosis: C34.12 - Malignant neoplasm of upper lobe, left bronchus or lung, Diagnosed 04/09/2024 (Active) Radiotherapy to date: Course: L lung/node, Treatment Site: Lt Lung 60Gy, Ref. ID: [id number], Energy: 6X, Dose/Fx (cGy): 200, #Fx: , Dose Correction (cGy): 0, Total Dose Delivered (cGy): 3,000, Start Date: 04/15/2024, Elapsed Days: 21 Reason for visit: The patient is being seen today as part of their regularly scheduled weekly on treatment visits to assess for acute toxicities from radiotherapy. Review of Systems: Patient remains in good spirits. He has no complaints today. He denies any trouble swallowing. His respiratory status is good. Vital Signs: Performed on 05/06/2024 1:28 PM BMI - 23.13 kg/m2 (high), Height - 70 in, Weight - 161.2 lbs, Temperature - 96.3 f, Pulse - 55 /min (low), Respiration - 16 /min, O2 Sat - 97 %, Pain - 0, Fatigue - 0 and BP - 143/ 75 mm(hg)(high/). Physical Exam: No changes on exam Imaging: Radiation therapy imaging related to accurate target localization (i.e. KV, MV and CBCT) was reviewed. Appropriate changes, if any, were made to ensure treatment accuracy. Plan: Will continue with his treatments as planned. He is alf through today. Signed by: Dr. Stephanie Corado 05/06/2024 2:15:05 PM
== END 2024-05-12 23:59 | disposition home or self-care (01) ==
PROVIDERS: PCP Internal Medicine; Visit Provider Radiology Radiation Oncology
DX: Z51.0 Encounter for antineoplastic radiation therapy (principal); C34.12 Malignant neoplasm of upper lobe, left bronchus or lung
CPT/HCPCS: 77336; 77386; 99024

== ENCOUNTER 2024-05-22 13:08 | Oncology outpatient (recurring) (ONCR) | payer OTHER, SELFPAY ==
--- NOTE | 2024-05-13 13:47 | ONCRAD TMN_ITS ---
Radiation Oncology Weekly Treatment Management Patient: Tye Almonte MR#: [id number] : 1945 Attending Physician: Dr. Adonis Live Date of Service: 05/13/2024 Referring Physician(s) : Diagnosis: C34.12 - Malignant neoplasm of upper lobe, left bronchus or lung, Diagnosed 04/09/2024 (Active) Radiotherapy to date: Course: L lung/node, Treatment Site: Lt Lung 60Gy, Ref. ID: [id number], Energy: 6X, Dose/Fx (cGy): 200, #Fx: 20 / 30, Dose Correction (cGy): 0, Total Dose Delivered (cGy): 4,000, Start Date: 04/15/2024, Elapsed Days: 28 Reason for visit: The patient is being seen today as part of their regularly scheduled weekly on treatment visits to assess for acute toxicities from radiotherapy. Review of Systems: No complaints. Eating ok. Swallowing ok. Active cleaning and restoring fish pond. Smokes a pipe each am. Some low back pain after activity. Vital Signs: Performed on 05/13/2024 1:18 PM BMI - 23.388 kg/m2 (high), Height - 70 in, Weight - 163 lbs, Temperature - 97.6 f, Pulse - 62 /min, Respiration - 16 /min, O2 Sat - 96 %, Pain - 0, Fatigue - 0 and BP - 126/ 68 mm(hg). Physical Exam: Imaging: Radiation therapy imaging related to accurate target localization (i.e. KV, MV and CBCT) was reviewed. Appropriate changes, if any, were made to ensure treatment accuracy. Plan: Good tolerance of treatment. Continue as planned. Signed by: Dr. Adonis Live 05/13/2024 1:46:08 PM
--- NOTE | 2024-05-20 14:34 | ONCRAD TMN_ITS ---
Radiation Oncology Weekly Treatment Management Patient: Suzy Gainse MR#: [id number] : 1945> Attending Physician: Dr. Adonis Live Date of Service: 05/20/2024 Referring Physician(s) : Diagnosis: C34.12 - Malignant neoplasm of upper lobe, left bronchus or lung, Diagnosed 04/09/2024 (Active) Radiotherapy to date: Course: L lung/node, Treatment Site: Lt Lung 60Gy, Ref. ID: [id number], Energy: 6X, Dose/Fx (cGy): 200, #Fx: , Dose Correction (cGy): 0, Total Dose Delivered (cGy): 4,800, Start Date: 04/15/2024, Elapsed Days: 35 Reason for visit: The patient is being seen today as part of their regularly scheduled weekly on treatment visits to assess for acute toxicities from radiotherapy. Review of Systems: Feels well. Eating and breathing well. Active at home. Energy is good. Legs get weak which limit his activity and then rests. Mowed lawn. Still smoking his pipe. Vital Signs: Performed on 05/20/2024 1:20 PM BMI - 23.56 kg/m2 (high), Height - 70 in, Weight - 164.2 lbs, Temperature - 97.1 f, Pulse - 63 /min, Respiration - 18 /min, O2 Sat - 95 % (low), Pain - 0, Fatigue - 0 and BP - 140/ 78 mm(hg). Physical Exam: Imaging: Radiation therapy imaging related to accurate target localization (i.e. KV, MV and CBCT) was reviewed. Appropriate changes, if any, were made to ensure treatment accuracy. Plan: Good tolerance of treatment. Will continue as planned. Signed by: Dr. Adonis Live 05/20/2024 2:32:47 PM
== END 2024-05-22 23:59 | disposition home or self-care (01) ==
PROVIDERS: PCP Internal Medicine; Visit Provider Radiology Radiation Oncology
DX: Z51.0 Encounter for antineoplastic radiation therapy (principal); C34.12 Malignant neoplasm of upper lobe, left bronchus or lung
CPT/HCPCS: 77336; 77386; 99024

== ENCOUNTER 2024-05-28 13:08 | Oncology outpatient (recurring) (ONCR) | payer OTHER, SELFPAY ==
--- NOTE | 2024-05-27 14:51 | ONCRAD TMN_ITS ---
Radiation Oncology Weekly Treatment Management Patient: Tye Almonte MR#: [id number] : 1945 Attending Physician: Dr. 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 ID: [id number], Energy: 6X, Dose/Fx (cGy): 200, #Fx: 29 / 30, Dose Correction (cGy): 0, Total Dose Delivered (cGy): 5,800, Start Date: 04/15/2024, Elapsed Days: 42 Reason for visit: The patient is being seen today as part of their regularly scheduled weekly on treatment visits to assess for acute toxicities from radiotherapy. Review of Systems: No symptoms. Breathing and eating well. No fatigue. Busy each day. Smokes a corn garcia pipe. Vital Signs: Performed on 05/27/2024 1:33 PM BMI - 23.417 kg/m2 (high), Height - 70 in, Weight - 163.2 lbs, Temperature - 97 f, Pulse - 69 /min, Respiration - 16 /min, O2 Sat - 97 %, Pain - 0, Fatigue - 0 and BP - 136/ 78 mm(hg). Physical Exam: omitted Imaging: Radiation therapy imaging related to accurate target localization (i.e. KV, MV and CBCT) was reviewed. Appropriate changes, if any, were made to ensure treatment accuracy. Plan: Good tolerance of treatment. Will complete treatment tomorrow. Signed by: Dr. Adonis Live 05/27/2024 2:49:25 PM
== END 2024-06-21 23:59 | disposition home or self-care (01) ==
PROVIDERS: PCP Internal Medicine; Visit Provider Radiology Radiation Oncology
DX: Z51.0 Encounter for antineoplastic radiation therapy (principal); C34.12 Malignant neoplasm of upper lobe, left bronchus or lung; F17.290 Nicotine dependence, other tobacco product, uncomplicated
CPT/HCPCS: 77336; 77386; 99024

== ENCOUNTER 2024-06-30 13:05 | Oncology outpatient (recurring) (ONCR) | payer OTHER, SELFPAY ==
--- NOTE | 2024-06-30 13:55 | ONCRAD EPV_ITS ---
Radiation Oncology Established Patient Visit Patient: Tye Almonte [id number] : 1945 Age: 78 Sex: Male Dictated by: Dr. Stephanie Corado Date of Service: 06/30/2024 Referring Physician(s) : Diagnosis: C34.12 - Malignant neoplasm of upper lobe, left bronchus or lung, Diagnosed 04/09/2024 (Active) Radiotherapy to Date: Course: L lung/node, Treatment Site: Lt Lung 60Gy, Ref. ID: [id number], Energy: 6X, Dose/Fx (cGy): 200, #Fx: 30 / 30, Dose Correction (cGy): 0, Total Dose Delivered (cGy): 6,000, Start Date: 04/15/2024, End Date: 05/28/2024, Elapsed Days: 43 Current History: Patient returns today 1 month after completing his radiation. He had initially been treated with immunotherapy and after he had progressed on this we had switched to radiation. He had refused any chemotherapy intervention. Subjectively he has a good appetite. He is gained 3 pounds in the last month. He denies any trouble swallowing. His breathing is without issues. Overall he feels quite well and is just anxious to get his PET scan to see how things have responded. Current Medications: Allergies: Current Complaints / Review of Systems: . Vital Signs: Performed on 06/30/2024 1:14 PM BMI - 23.933 kg/m2 (high), Height - 70 in, Weight - 166.8 lbs, Temperature - 96.9 f, Pulse - 64 /min, Respiration - 16 /min, O2 Sat - 97 %, Pain - 0, Fatigue - 0 and BP - 152/ 77 mm(hg)(high/). Physical Exam: General: Alert and oriented x 3. No acute distress. HEENT: Normocephalic, atraumatic. Extraocular Movements Intact: Pupils Equal, Round, Reactive to Light LUNGS: Respiratory rate is regular nonlabored HEART: Regular rate and rhythm, Performance Status: 100 Lab: None pending. Pathology: Primary, c34.12 - malignant neoplasm of upper lobe, left bronchus or lung, Diagnosed 04/09/2024 (active) . Imaging: See HPI Impression: Lung cancer now 1 month from completion of treatment Plan: At this point he is doing well. He is recovered from his treatments. He has gained weight. Will go ahead and schedule his PET scan which would be the last week in August or first week in September. Once we have those results we will call him with the report. He otherwise will see medical oncology for follow-up and he will be seeing [facility] as well. Signed by: 06/30/2024 1:53:31 PM <<Signature on File>> Time spent with patient: 15 CPT Code: CPT Code:
== END 2024-07-22 23:59 | disposition home or self-care (01) ==
LOC: ONCMED 13:05
PROVIDERS: PCP Internal Medicine; Visit Provider Radiology Radiation Oncology
DX: C34.12 Malignant neoplasm of upper lobe, left bronchus or lung (principal); F17.290 Nicotine dependence, other tobacco product, uncomplicated; Z92.25 Personal history of immunosuppression therapy; Z92.3 Personal history of irradiation
CPT/HCPCS: 99024; 99214

== ENCOUNTER 2024-08-29 10:09 | Oncology outpatient (recurring) (ONCR) | payer OTHER, SELFPAY ==
--- NOTE | 2024-08-29 10:30 | PETR_ITS ---
PROCEDURE INFORMATION: Exam: PET/CT Skull Base to Mid-thigh Exam date and time: 08/29/2024 11:27 AM Age: 79 years old Clinical indication: Condition or disease; Primary cancer: Lung cancer darinel; Follow-up oncological assessment; Additional info: Lung CA sp xrt LABS AND CLINICAL REPORTS: Glucose: 96 mg/dl Treatment strategy for malignancy (PET staging): Restaging (PS) TECHNIQUE: Imaging protocol: Following at least four-hour fasting and following the injection of radiopharmaceutical, low dose CT images were obtained. Then, PET images were obtained. Attenuation corrected images were constructed using the CT scan. Fused images of PET and CT were reviewed. The standardized uptake values (SUV) reported below are maximum values within a region of interest, expressed in gm/ml. Exam includes orbital meatal line to mid-thigh. SUV normalization method: BodyWeight Radiopharmaceutical: 10.83 mCi F-18 FDG (Fluorodeoxyglucose), IV. Time of imaging post radiopharmaceutical administration: 45 minutes Injection site: left ac COMPARISON: CT chest for radiotherapy planning 04/10/2024, PT PET skull to thigh [id number] 03/25/2024 10:48 AM FINDINGS: Brain: Visualized brain has normal physiologic uptake. Pharynx: No abnormal uptake. Larynx: No abnormal uptake. Lungs, pleura and trachea: A triangular region of consolidation adjacent to the pleural surface in the left upper lobe with extension into the left perihilar region is identified measuring up to 4.7 x 3.0 cm in the axial plane adjacent to the pleural surface on CT image 249, SUV max 3.3 on PET image 105 (previous SUV max 33.1 throughout this region). Immediately adjacent to this region, there is a cavitary lesion on CT image 243 with an ovoid central solid component measuring 2.7 x 1.6 cm, SUV max 2.6. The solid masslike region along the inferior aspect of the cavity has significantly decreased in size, currently measuring 4.4 x 2.[address] image 235 (previously 5.8 x 4.5 cm) Uptake surrounding the cavitary portion of the lesion has nearly completely resolved. The greatest uptake within this region is identified in the region of surgical antonia in the left perihilar region, which demonstrates an SUV max 5.2 (previously 5.6) (PET image 99). Low-level uptake is identified within areas of pleural-based streaky and patchy density at the left lung apex, SUV max 2.[address] image 267. Similar peripheral bullous and/or paraseptal emphysematous changes are noted, with mild interstitial prominence. These regions demonstrate similar mildly elevated uptake, for example in the posterior left lower lobe associated with mild pleural thickening on PET image 114/CT image 229, SUV max 3.4. Bilateral pulmonary calcified granulomas are identified. Heart: Normal physiologic uptake. Mediastinal space: No abnormal uptake. Liver: No abnormal uptake. Small low-density foci in the liver are identified without elevated uptake, likely related to benign cysts or hemangiomas, for example in the left liver lobe measuring [address] image 202. Gallbladder and biliary ducts: No abnormal uptake. Pancreas: No abnormal uptake. Spleen: No abnormal uptake. Calcified granulomas in the spleen are present. Adrenal glands: No abnormal uptake. Kidneys and ureters: Normal physiologic uptake. Non radiotracer avid rounded low-density lesions arise from both kidneys, likely related to benign cysts. Stomach and bowel: Mild uptake within the proximal stomach is likely physiologic or inflammatory, SUV max 6.1 on PET image 148, without definite wall thickening or mass on the CT images. Reproductive: There is moderate prominence of the prostate gland, without evidence of elevated uptake. Vasculature: No abnormal uptake. Diffuse atherosclerotic calcifications are identified, including within the coronary arteries. Lymph nodes: Mild uptake in the right hilar region is identified without definite correlating lymph nodes on the CT images, SUV max 4.4 (previously 3.2) on PET image 110. Interval resolution of abnormal uptake in the left hilar region, with no definite lymphadenopathy in this location currently. Assessment for small lymph nodes is limited without intravenous contrast. Skeleton: No abnormal uptake in the visualized axial and appendicular skeleton. Degenerative changes in the spine are identified. Soft tissues: A subcutaneous nodule in the fat at the base of the neck/superior thorax on the right is noted with low-level uptake, SUV max 2.8 (previously 2.2) on PET image 63 measuring 2.0 x 1.5 cm (previously 2.0 x 1.1 cm), on CT image 279. Is similar in size more inferiorly located subcutaneous nodule adjacent to the posterosuperior thoracic skin surface measuring 1.2 cm in diameter on CT image 265 remains non radiotracer avid. METRICS: Mediastinal blood pool: SUV max 2.3, SUV mean 1.9 PET/PET skull to thigh SUBS [id number] IMPRESSION: 1. Interval decrease in size of the inferior solid component of a cavitary lesion in the left upper lobe with significantly decreased uptake since the prior PET-CT consistent with partial response to therapy. Mild uptake in this region currently may be related to posttreatment inflammatory changes versus residual or recurrent malignancy. 2. Interval resolution of abnormal uptake in the left hilar region, with interval resolution or near-complete resolution of lymphadenopathy in this location consistent with a response to therapy. 3. Mild nonspecific uptake in the right hilar region has slightly increased, without definite lymphadenopathy. This uptake may be physiologic, or related to mild infectious or inflammatory changes within small lymph nodes in this location. A malignant etiology is less likely. 4. Similar low-level uptake within areas of mild pleural thickening interstitial prominence in the posterior lower lobes, likely inflammatory in etiology. A malignant etiology is less likely. 5. A subcutaneous nodule in the posterior right neck/superior thorax demonstrates slight interval increase in size and mild uptake. The appearance continues to favor an inflammatory or infectious etiology rather than malignancy. Attention to this region on follow-up imaging is recommended. 6. Additional nonurgent findings as detailed above.
== END 2024-09-19 23:59 | disposition home or self-care (01) ==
LOC: ONCMED 10:09 → RAD 10:10 → ONCMED 09-01 10:15
PROVIDERS: PCP Internal Medicine; Visit Provider Radiology Radiation Oncology
DX: C34.12 Malignant neoplasm of upper lobe, left bronchus or lung (principal); R22.1 Localized swelling, mass and lump, neck
CPT/HCPCS: 78815; A9552

== ENCOUNTER 2024-09-22 13:58 | Oncology outpatient (recurring) (ONCR) | payer OTHER, SELFPAY ==
--- NOTE | 2024-09-22 15:52 | ONCRAD EPV_ITS ---
Radiation Oncology Established Patient Visit Patient: Tye Almonte [id number] : 1945 Age: 79 Sex: Male Dictated by: Rex Cruz Date of Service: 09/22/2024 Referring Physician(s) : Diagnosis: C34.12 - Malignant neoplasm of upper lobe, left bronchus or lung, Diagnosed 04/09/2024 (Active) Radiotherapy to Date: Course: L lung/node, Treatment Site: Lt Lung 60Gy, Ref. ID: [id number], Energy: 6X, Dose/Fx (cGy): 200, #Fx: 30 / 30, Dose Correction (cGy): 0, Total Dose Delivered (cGy): 6,000, Start Date: 04/15/2024, End Date: 05/28/2024, Elapsed Days: 43 Current History: This is a pleasant 79-year-old male coming back after PET/CT on 08/29/2024. Patient is 5 months s/p definitive XRT to the LEFT LUNG. Patient denies any problems such as hemoptysis, SOB, weight loss or new constitutional signs. Current Medications: Allergies: Current Complaints / Review of Systems: . Vital Signs: Performed on 09/22/2024 2:11 PM BMI - 24.68 kg/m2 (high), Height - 70 in, Weight - 172 lbs, Temperature - 97.8 f, Pulse - 72 /min, Respiration - 17 /min, O2 Sat - 97 %, Pain - 0, Fatigue - 0 and BP - 158/ 82 mm(hg)(high/). Physical Exam: General: Alert and oriented x 3. No acute distress. HEENT: Normocephalic, atraumatic. Extraocular Movements Intact: Pupils Equal, Round, Reactive to Light and Accommodation: Sclerae anicteric. Oral cavity is clear without lesions, masses or ulcers. NECK: Supple without supraclavicular or jugular lymphadenopathy. LUNGS: Clear to auscultation bilaterally without rales, rhonchi or wheeze. HEART: Regular rate and rhythm, normal S1 and S2 without murmur, gallop or rub. MUSCULOSKELETAL: No tenderness or percussion pain over the axial skeleton, scapulae or pelvis. ABDOMEN: Soft, nontender, nondistended without masses or organomegaly. Bowell sounds are present. EXTREMITIES: No peripheral edema is identified. Limited motor and sensory examination are grossly intact and symmetric bilaterally. NEUROLOGIC: Cranial nerves II ???XII are grossly intact. Normal sensation, strength 5/5 in all extremities, normal gait, no ataxia. Performance Status: RADIOLOGY: 08/29/2024 PET/CT IMPRESSION: 1. Interval decrease in size of the inferior solid component of a cavitary lesion in the left upper lobe with significantly decreased uptake since the prior PET-CT consistent with partial response to therapy. Mild uptake in this region currently may be related to posttreatment inflammatory changes versus residual or recurrent malignancy. 2. Interval resolution of abnormal uptake in the left hilar region, with interval resolution or near-complete resolution of lymphadenopathy in this location consistent with a response to therapy. 3. Mild nonspecific uptake in the right hilar region has slightly increased, without definite lymphadenopathy. This uptake may be physiologic, or related to mild infectious or inflammatory changes within small lymph nodes in this location. A malignant etiology is less likely. 4. Similar low-level uptake within areas of mild pleural thickening interstitial prominence in the posterior lower lobes, likely inflammatory in etiology. A malignant etiology is less likely. 5. A subcutaneous nodule in the posterior right neck/superior thorax demonstrates slight interval increase in size and mild uptake. The appearance continues to favor an inflammatory or infectious etiology rather than malignancy. Attention to this region on follow-up imaging is recommended. 6. Additional nonurgent findings as detailed above. Pathology: Primary, c34.12 - malignant neoplasm of upper lobe, left bronchus or lung, Diagnosed 04/09/2024 (active) . Impression: Non-small cell lung cancer Interval improvement JERMAN Mass from 5.8 x 4.5 to now 4.4 x 2.4 cm (41 % improvement) RTC in 3 months or sooner if need be. Repeat PET/CT in 6 months. Signed by: 09/22/2024 3:50:36 PM <<Signature on File>> Time spent with patient: CPT Code: * CPT Code: *
== END 2024-10-20 23:59 | disposition home or self-care (01) ==
LOC: ONCMED 13:59
PROVIDERS: PCP Internal Medicine; Visit Provider Radiology Radiation Oncology
DX: C34.12 Malignant neoplasm of upper lobe, left bronchus or lung (principal); Z92.3 Personal history of irradiation
CPT/HCPCS: 99213

== ENCOUNTER 2024-12-29 10:51 | Oncology outpatient (recurring) (ONCR) | payer OTHER, SELFPAY ==
--- NOTE | 2024-12-29 13:33 | ONCRAD EPV_ITS ---
Radiation Oncology Established Patient Visit Patient: Tye Almonte [id number] : 1945 Age: 79 Sex: Male Dictated by: Dr. Adonis Live Date of Service: 12/29/2024 Referring Physician(s) : Diagnosis: C34.12 - Malignant neoplasm of upper lobe, left bronchus or lung, Diagnosed 04/09/2024 (Active) Radiotherapy to Date: Course: L lung/node, Treatment Site: Lt Lung 60Gy, Ref. ID: [id number], Energy: 6X, Dose/Fx (cGy): 200, #Fx: 30 / 30, Dose Correction (cGy): 0, Total Dose Delivered (cGy): 6,000, Start Date: 04/15/2024, End Date: 05/28/2024, Elapsed Days: 43 Current History: Stable overall. One weak or ??? bad??? day a week. Breathing ok. Smoking pipe 2 x a day. Eating ok. Travel limited to chronic LBP present for years. Active at home. PET/CT 08/29/2024 post treatment fibrosis and infiltrate with no significant uptake in region of primary disease compared to pre op imaging on my review. Vital Signs: Performed on 12/29/2024 11:06 AM BMI - 24.393 kg/m2 (high), Height - 70 in, Weight - 170 lbs, Temperature - 96.7 f, Pulse - 55 /min (low), Respiration - 18 1 mg x 14, O2 Sat - 96 %, Pain - 0, Fatigue - 0 and BP - 156/ 53 mm(hg)(high/low). Physical Exam: General: Alert and oriented x 3. No acute distress. Performance Status: ECOG PS 0 - 1 Lab: None pending. Pathology: Primary, c34.12 - malignant neoplasm of upper lobe, left bronchus or lung, Diagnosed 04/09/2024 (active) . Imaging: See HPI Impression: Doing well post treatment . 08/29/2024 PET/CT consistent with excellent response . See again in 3 months with repeat PET/CT as previously discussed with patient and Dr. Cruz. Signed by: 12/29/2024 1:31:44 PM <<Signature on File>> Time spent with patient: CPT Code: CPT Code:
== END 2025-01-19 23:59 | disposition home or self-care (01) ==
PROVIDERS: PCP Internal Medicine; Visit Provider Radiology Radiation Oncology
DX: C34.12 Malignant neoplasm of upper lobe, left bronchus or lung (principal); F17.290 Nicotine dependence, other tobacco product, uncomplicated; Z92.3 Personal history of irradiation
CPT/HCPCS: 99215

== ENCOUNTER 2025-04-14 14:30 | Oncology outpatient (recurring) (ONCR) | payer OTHER, SELFPAY ==
--- NOTE | 2025-04-03 08:30 | PETR_ITS ---
PROCEDURE INFORMATION: Exam: PET/CT Skull Base to Mid-thigh Exam date and time: 04/03/2025 9:26 AM Age: 79 years old Clinical indication: Condition or disease; Lung CA -post radation; Additional info: C34.12 - malignant neoplasm of upper lobe, left bronchus . . . , Would like to have it done first week of March. LABS AND CLINICAL REPORTS: Glucose: 92 mg/dl Treatment strategy for malignancy (PET staging): Restaging (PS) TECHNIQUE: Imaging protocol: Following at least four-hour fasting and following the injection of radiopharmaceutical, low dose CT images were obtained. Then, PET images were obtained. Attenuation corrected images were constructed using the CT scan. Fused images of PET and CT were reviewed. The standardized uptake values (SUV) reported below are maximum values within a region of interest, expressed in gm/ml. Exam includes orbital meatal line to mid-thigh. SUV normalization method: BodyWeight Radiopharmaceutical: 11.41 mCi F-18 FDG (Fluorodeoxyglucose), IV. Time of imaging post radiopharmaceutical administration: 46 minutes Injection site: RAC COMPARISON: PT PET skull to thigh SUBS [id number] 08/29/2024 11:27 AM FINDINGS: Brain: Visualized brain has normal physiologic uptake. Paranasal sinuses: Mild patchy non FDG avid bilateral paranasal sinus mucosal thickening. Pharynx: No abnormal uptake. Larynx: Symmetric uptake without underlying CT abnormality is likely benign activation. Lungs, pleura and trachea: Redemonstrated pulmonary emphysema and increased interstitial thickening with apparent honeycombing most conspicuous at the subpleural left lower lobe suggesting fibrotic change. Interval left lung volume loss with mildly increased triangular anteromedial left upper lobe consolidative opacity with decreased size of cavity and nodular component at the superior aspect with cavitary portion measuring approximately 2.1 cm on axial image 93 (previously 4.5 cm) and solid nodular component measuring approximately 1.8 cm on axial image 93 (previously 2.7 cm). Increased peripheral FDG uptake with SUV max 5.4 at the central aspect on axial image 96 (previously 5.2) and developed more peripheral FDG avidity with SUV max 5.8 on axial image 101. Mildly increased area of lower level peripheral posterior left lower lobe FDG uptake with SUV max 3.5, previously 3.4. Stable mild left pleural thickening. Heart: Normal physiologic uptake. Coronary arteries: Moderate to heavy coronary artery calcification. Mediastinal space: No abnormal uptake. Liver: No abnormal uptake. Gallbladder and biliary ducts: No abnormal uptake. Pancreas: No abnormal uptake. Spleen: No abnormal uptake. Calcified granulomata. Adrenal glands: No abnormal uptake. Kidneys and ureters: Normal physiologic uptake. Bilateral benign-appearing photopenic renal cysts. Stomach and bowel: No abnormal uptake. Colonic diverticulosis without findings of diverticulitis. Reproductive: Prostatomegaly. No abnormal uptake. Vasculature: No abnormal uptake. Heavy systemic atherosclerotic calcification without aortic aneurysm. Lymph nodes: Increased left hilar uptake without discretely measurable node showing SUV max 5.2 on axial image 98, previously 3.7. Decreased right hilar uptake shows SUV max 3.6 on axial image 104, previously 4.4. Calcified mediastinal and left hilar nodes in keeping with sequela of old granulomatous disease. Skeleton: Degenerative change along the spine and sacroiliac joints. Soft tissues: Stable 1.8 cm right upper back subcutaneous nodule with low-level uptake showing SUV max 2.9, previously 2.8. Developed mild asymmetric left pectoralis muscle thickening with low-level uptake showing SUV max 3.6 possibly extending deeper toward the pleura/lung, axial image 104. METRICS: Mediastinal blood pool: SUV mean 2.3 Liver uptake: SUV mean 2.7 PET/PET skull to thigh SUBS [id number] IMPRESSION: 1. Compared to August 2024, mixed left lung findings. Although decreased size of left upper lobe cavity and nodular component, mildly increased consolidative area with increased FDG uptake. There is also increased left hilar FDG uptake without discretely measurable node. Findings could represent benign inflammatory change versus progressive malignancy. 2. Developed mild asymmetric left pectoralis muscle thickening with low-level FDG uptake possibly extending deeper toward the pleura/lung may be inflammatory, disease involvement not excluded. 3. Decreased left lung volume with increased interstitial thickening and apparent honeycombing most conspicuous at the subpleural left lower lobe suggestive of fibrotic change. Associated mildly increased low-level uptake is likely inflammatory. 4. Decreased right hilar FDG uptake. 5. Stable mildly FDG avid right upper back subcutaneous nodule is again favored to be inflammatory. 6. Additional chronic and incidental findings as above.
--- NOTE | 2025-04-14 14:52 | ONCRAD EPV_ITS ---
Radiation Oncology Established Patient Visit Patient: Suzy Gamble [id number] : 1945> Age: 79> Sex: Male> Dictated by: Rex Cruz Date of Service: 04/14/2025 Referring Physician(s) : Diagnosis: C34.12 - Malignant neoplasm of upper lobe, left bronchus or lung, Diagnosed 04/09/2024 (Active) Radiotherapy to Date: Course: L lung/node, Treatment Site: Lt Lung 60Gy, Ref. ID: [id number], Energy: 6X, Dose/Fx (cGy): 200, #Fx: 30 / 30, Dose Correction (cGy): 0, Total Dose Delivered (cGy): 6,000, Start Date: 04/15/2024, End Date: 05/28/2024, Elapsed Days: 43 Current History: This is a pleasant 79-year-old male who is now 10 months status post treatment to the left lung. Recent PET of 04/03/2025 shows continued decrease in size nodules as well as SUV readings. There is some increase in left hilar uptake without discernible node. We would recommend fall on that and a 6-month interval PET. Current Medications: Aspirin 81 mg PO DAILYcholecalciferol (vitamin D3) 10 mcg PO DAILYprochlorperazine maleate (Compazine) 10 mg PO Q4H PRNsimvastatin 5 mg PO DAILY Allergies: Iodinated Contrast Media Allergy (Intermediate, Verified 04/14/25 14:42)Unknown Current Complaints / Review of Systems: . No voice complaints. Vital Signs: Performed on 04/14/2025 2:43 PM BMI - 24.794 kg/m2 (high), Height - 70 in, Weight - 172.8 lbs, Temperature - 96.9 f, Pulse - 61 /min, Respiration - 18 /min, O2 Sat - 97 %, Pain - 0, Fatigue - 0 and BP - 155/ 78 mm(hg)(high/). Physical Exam: General: Alert and oriented x 3. No acute distress. HEENT: Normocephalic, atraumatic. Extraocular Movements Intact: Pupils Equal, Round, Reactive to Light and Accommodation: Sclerae anicteric. Oral cavity is clear without lesions, masses or ulcers. NECK: Supple without supraclavicular or jugular lymphadenopathy. LUNGS: Clear to auscultation bilaterally without rales, rhonchi or wheeze. HEART: Regular rate and rhythm, normal S1 and S2 without murmur, gallop or rub. MUSCULOSKELETAL: No tenderness or percussion pain over the axial skeleton, scapulae or pelvis. ABDOMEN: Soft, nontender, nondistended without masses or organomegaly. Bowell sounds are present. EXTREMITIES: No peripheral edema is identified. Limited motor and sensory examination are grossly intact and symmetric bilaterally. NEUROLOGIC: Cranial nerves II ???XII are grossly intact. Normal sensation, strength 5/5 in all extremities, normal gait, no ataxia. Performance Status: Lab: None pending. Pathology: Primary, c34.12 - malignant neoplasm of upper lobe, left bronchus or lung, Diagnosed 04/09/2024 (active) . Imaging: See HPI Impression: JERMAN cont dec in ds size PLAN: RTC in 6 months with new PET. Patient can return sooner if need be. Signed by: 04/14/2025 2:51:23 PM <<Signature on File>> Time spent with patient/: 15 minutes CPT Code: CPT Code:
== END 2025-04-21 23:59 | disposition home or self-care (01) ==
PROVIDERS: PCP Internal Medicine; Visit Provider Internal Medicine Medical Oncology
DX: Z53.9 Procedure and treatment not carried out, unspecified reason; Z08 Encounter for follow-up examination after completed treatment for malignant neoplasm; Z85.118 Personal history of other malignant neoplasm of bronchus and lung; F17.210 Nicotine dependence, cigarettes, uncomplicated; Z92.25 Personal history of immunosuppression therapy; Z92.3 Personal history of irradiation
CPT/HCPCS: 78815; 99024; 99213; A9552